=== PATIENT | male | born 2000 | race Caucasian/White ===

== ENCOUNTER 2022-05-22 06:16 | Emergency (ER) | payer MEDICAID ==
[~2022-05-22] VITALS: Ht 175.3 cm; Wt 81.6 kg
--- NOTE | 2022-05-22 06:31 | NUR ---
[facility]IB[facility] FOR C/O WITNESSED SEIZURES LASTING APPROX 5 MINS PER ROOMATE. HX OF SEIZURES DIAGNOSED IN OCTOBER, ON [facility] AND HAS BEEN TAKING MEDS PRESCRIBED.PT AWAKE AND ALERT X4 BREATHING UNLABORED -ORAL TRAUMA -INCONTINENCE. NO FALL OR INJURY STATES HE ONLY HAS SEIZURES WHEN ASLEEP. LAST SEIZURE LAST WEEK AND HAS NOT HAD A CHANCE TO FOLLOW UP WITH PRIMARY MD. PT PLACED ON ROOM WORKER AND PULSE OX, SEIZURE SAFETY PRECUATIONS IN PLACE.
--- NOTE | 2022-05-22 06:48 | NUR ---
URINE COLLECTED AND SENT TO LAB
[2022-05-22] MEDS ORDERED: ONDANSETRON HCL/PF 4 MG/2 ML VIAL ONE (07:01)
[2022-05-22] MEDS ORDERED: ACETAMINOPHEN 325 MG TABLET ONE (07:02)
--- NOTE | 2022-05-22 07:04 | NUR ---
AUTO ROLLER AT PT'S BEDSIDE
[2022-05-22] MEDS: LEVETIRACETAM (500MG) 500 MG in IV NS 0.9% 100 ML IV ONE (07:09)
[2022-05-22] MEDS: ACETAMINOPHEN 325 MG TABLET PO ONE (07:10)
[2022-05-22] MEDS: ONDANSETRON HCL/PF 4 MG/2 ML VIAL IV ONE (07:10)
--- NOTE | 2022-05-22 07:20 | NUR ---
RECEIVED PT FROM [facility] AWAKE AND ALERT no seizure resting and asleepy respiration spont
[2022-05-22 07:27] LABS: BASOPHILS # (AUTO) 0.1 K/uL (0.0-0.2); BASOPHILS % (AUTO) 0.7 % (0.0-2.0); EOSINOPHILS % (AUTO) 4.1 % (0.0-6.0); HEMATOCRIT 43 % (39-51); HEMOGLOBIN 14.4 g/dL (13.5-17.5); LYMPHOCYTES # (AUTO) 2.1 K/uL (0.8-4.8); LYMPHOCYTES % (AUTO) 28.3 % (20.0-44.0); MEAN CORPUSCULAR HGB CONC 34 g/dl (31.0-36.0); MEAN CORPUSCULAR VOLUME 88 fL (80-96); MONOCYTES # (AUTO) 0.6 K/uL (0.1-1.30); MONOCYTES % (AUTO) 7.6 % (2.0-12.0); NEUTROPHILS # (AUTO) 4.3 K/uL (1.8-8.9); NEUTROPHILS % (AUTO) 59.3 % (43.0-81.0); PLATELET COUNT (AUTO) 218 K/uL (150-450); RED BLOOD CELL COUNT(AUTO) 4.89 MIL/uL (4.5-6.0); WHITE BLOOD COUNT (AUTO) 7.3 K/uL (4.3-11.0)
--- NOTE | 2022-05-22 07:30 | NUR ---
DR. FISHER AT BED SIDE SPOKE WITH PT and plan of care to d/c home today
[2022-05-22 07:33] LABS: ALANINE AMINOTRANSFERASE 24 U/L (12-78); ALBUMIN 3.7 g/dL (3.4-5.0); ALCOHOL, BLOOD < 3 mg/dL (0-0); ALKALINE PHOSPHATASE 45 U/L (46-116); ASPARTATE AMINOTRANSFERASE 16 U/L (15-37); BILIRUBIN,DIRECT 0.1 mg/dL (0.0-0.2); BILIRUBIN,TOTAL 0.3 mg/dL (0.2-1.0); CALCIUM, SERUM 9.1 mg/dL (8.5-10.1); CARBON DIOXIDE 28 mmol/L (21-32); CHLORIDE 104 mmol/L (98-107); GLUCOSE 115 mg/dL (74-106); POTASSIUM 3.2 mmol/L (3.5-5.1); SODIUM SERUM 141 mmol/L (136-145); TOTAL PROTEIN, SERUM 6.8 g/dL (6.4-8.2); UREA NITROGEN, BLOOD 12 mg/dL (7-18)
--- NOTE | 2022-05-22 07:50 | NUR ---
Patient discharged to home in stable condition. Written and verbal after care instructions given. Patient verbalizes understanding of instruction.
[2022-05-22] MEDS ORDERED: KETOROLAC TROMETHAMINE 15 MG/ML VIAL ONE (07:54)
--- NOTE | 2022-05-22 07:55 | NUR ---
PT REFUSED TORDOLE DR. FISHER AWARE
--- NOTE | 2022-05-22 07:55 | NUR ---
D/C HL DONE PRESSURE APPLE NO BLEEDING ON SITE
[2022-05-22] MEDS: KETOROLAC TROMETHAMINE INJ 30 MG/ML VIAL IV ONE (08:01)
[2022-05-22 08:10] VITALS: BP 139/62
== END 2022-05-22 08:45 | disposition home or self-care (01) ==
LOC: ER 06:24
DX: G40.909 Epilepsy, unspecified, not intractable, without status epilepticus (principal)
CPT/HCPCS: 99284; 96365; 96375; 70450; 85025; 80048; 80076; 36415; 80320; 80307; J2405; J7030; J1953; G0480; J1885